=== PATIENT | female | born 1990 | race Caucasian/White ===

== ENCOUNTER 2017-04-07 13:15 | Emergency (ER) | payer SELFPAY | END 2017-04-07 14:52 | disposition home or self-care (01) | LOC: D.ER 13:15 | DX: S69.91XA Unspecified injury of right wrist, hand and finger(s), initial encounter (principal); W22.8XXA Striking against or struck by other objects, initial encounter; Y93.89 Activity, other specified; Y92.89 Other specified places as the place of occurrence of the external cause; S60.221A Contusion of right hand, initial encounter; F32.9 Major depressive disorder, single episode, unspecified; G25.81 Restless legs syndrome; F17.200 Nicotine dependence, unspecified, uncomplicated ==

== ENCOUNTER 2018-09-11 14:35 | Emergency (ER) | payer MEDICAID ==
[~2018-09-11] VITALS: Ht 167.6 cm; Wt 90.9 kg
[2018-09-11 14:45] VITALS: Ht 167.6 cm; Wt 90.9 kg
[2018-09-11] MEDS ORDERED: TORADOL10 MG PO (15:59)
[2018-09-11 16:11] VITALS: BP 128/73
== END 2018-09-11 16:12 | disposition home or self-care (01) ==
LOC: D.ER 14:35
DX: S67.02XA Crushing injury of left thumb, initial encounter (principal); W23.0XXA Caught, crushed, jammed, or pinched between moving objects, initial encounter; Y93.89 Activity, other specified; Y92.019 Unspecified place in single-family (private) house as the place of occurrence of the external cause; F17.200 Nicotine dependence, unspecified, uncomplicated